=== PATIENT | male | born 1950 | race Caucasian/White ===

== ENCOUNTER → 2016-11-20 | Outpatient (CLI) | payer MEDICARE, OTHER | LOC: KOH-I 13:21 | DX: M25.552 Pain in left hip (principal); M54.5 Low back pain; M47.816 Spondylosis without myelopathy or radiculopathy, lumbar region | CPT/HCPCS: 72100; 73522 ==

== ENCOUNTER 2021-04-12 06:47 | Emergency (ER) | payer MEDICARE, OTHER ==
[~2021-04-12] VITALS: Ht 193 cm; Wt 170.1 kg
[2021-04-12 07:35] LABS: HEMOGLOBIN 14.9 gm/dl (14.0-17.5); RED BLOOD COUNT 5.18 M/UL (4.20-5.50); WHITE BLOOD COUNT 6.7 K/UL (4.5-11.0)
[2021-04-12 07:53] LABS: BUN/CREATININE RATIO 16 (0-10)
== END 2021-04-12 11:03 | disposition home or self-care (01) ==
LOC: ER1 06:47
PROVIDERS: Emergency Medicine
DX: U07.1 COVID-19 (principal); I48.91 Unspecified atrial fibrillation; E11.9 Type 2 diabetes mellitus without complications; Z23 Encounter for immunization; I10 Essential (primary) hypertension; F17.200 Nicotine dependence, unspecified, uncomplicated
CPT/HCPCS: 71045; 80053; 83735; 85025; 99283; M0243

== ENCOUNTER → 2021-06-09 | Outpatient (CLI) | payer MEDICARE, OTHER | LOC: EXRD 14:14 | DX: I65.29 Occlusion and stenosis of unspecified carotid artery (principal); I65.23 Occlusion and stenosis of bilateral carotid arteries; R51.9 Headache, unspecified; E78.5 Hyperlipidemia, unspecified; I10 Essential (primary) hypertension; H53.9 Unspecified visual disturbance | CPT/HCPCS: 93880 ==

== ENCOUNTER → 2021-09-09 | Outpatient (CLI) | payer MEDICARE, OTHER ==
[~2021-09-09] MED LIST: CATAPRES 0.1MG0.1 MG PO
== END ==
LOC: KOH-I 14:00
DX: F17.210 Nicotine dependence, cigarettes, uncomplicated (principal)
CPT/HCPCS: 71271

== ENCOUNTER → 2021-11-04 | Outpatient (CLI) | payer MEDICARE, OTHER ==
[~2021-11-04] VITALS: Ht 190.5 cm; Wt 170.1 kg
== END ==
LOC: EROP 10:50
DX: U07.1 COVID-19 (principal); Z23 Encounter for immunization; E11.9 Type 2 diabetes mellitus without complications; I10 Essential (primary) hypertension
CPT/HCPCS: M0247; Q0247